=== PATIENT | female | born 1965 | race Caucasian/White ===

== ENCOUNTER 2019-01-12 11:19 | Day surgery (SDC) | payer OTHER ==
[2019-01-12] MEDS ORDERED: FENTAnyl 50 MCG/ML VIAL (13:47)
[2019-01-12] MEDS ORDERED: MIDAZOLAM 1 MG/ML 2 ML INJ ×2 (13:47)
== END 2019-01-12 14:48 | disposition home or self-care (01) ==
LOC: GIL 11:19
DX: Z12.11 Encounter for screening for malignant neoplasm of colon (principal); K64.8 Other hemorrhoids
CPT/HCPCS: 45378; 84703